=== PATIENT | female | born 1960 | race Caucasian/White ===

== ENCOUNTER 2021-06-28 08:47 | Inpatient (IN) | payer OTHER ==
[~2021-06-28] VITALS: Ht 160 cm; Wt 77.1 kg
[~2021-06-28 08:47] MED LIST: NORCO 5-325 TA1 EACH PO; ZOFRAN ODT4 MG PO
[2021-06-28 09:43] VITALS: BP 139/76
[2021-06-28 10:37] LABS: HEMATOCRIT 40.2 % (37.0-47.0); HEMOGLOBIN 13.5 gm/dL (12.0-15.0); MCH 27.6 pg (26.0-34.0); MCHC 33.5 g/dL (28.0-37.0); MCV 82.5 fL (80.0-100.0); MPV 8.4 fl. (7.2-11.1); NUCLEATED RBCS 0 /100WBC; PLATELET COUNT* 296 thou/uL (150-400); RBC 4.87 mil/uL (4.20-5.00); RDW-CV 13.5 % (10.5-14.5); WBC 16.3 thou/uL (4.0-11.0)
[2021-06-28 10:43] LABS: CALCIUM 8.5 mg/dL (8.5-10.1); CREATININE 0.8 mg/dL (0.6-1.3)
[2021-06-28 10:47] LABS: POTASSIUM 2.6 mmol/L (3.5-5.1)
[2021-06-28 10:48] LABS: ALBUMIN 2.2 g/dL (3.4-5.0); TOTAL BILIRUBIN 0.8 mg/dL (<0.1-1.0); TOTAL PROTEIN 7.3 g/dL (6.4-8.2)
[2021-06-28 11:05] LABS: INFLUENZA A ANTIGEN Negative (Negative); INFLUENZA B ANTIGEN Negative (Negative)
[2021-06-28 12:15] LABS: ABSOLUTE LYMPHOCYTES 1.6 thou/uL (0.8-5.3); ABSOLUTE MONOCYTES 0.8 thou/uL (0.0-1.2); ABSOLUTE NEUTROPHILS 13.9 thou/uL (1.6-8.1)
[2021-06-28 12:16] LABS: PLATELET ESTIMATE ADEQUATE
[2021-06-28 12:50] LABS: CALCIUM 7.8 mg/dL (8.5-10.1); CREATININE 0.8 mg/dL (0.6-1.3)
[2021-06-28 12:54] LABS: MAGNESIUM 2.3 mg/dL (1.8-2.4); PHOSPHORUS* 3.2 mg/dL (2.5-4.9)
[2021-06-28 15:02] VITALS: BP 130/70
[2021-06-28 19:12] VITALS: BP 138/70
[2021-06-28 19:40] VITALS: BP 123/70
[2021-06-29 02:08] VITALS: BP 98/63
[2021-06-29 04:49] LABS: ABSOLUTE BASOPHILS 0.1 thou/uL (0.0-0.2); ABSOLUTE MONOCYTES 0.7 thou/uL (0.0-1.2); ABSOLUTE NEUTROPHILS 12.8 thou/uL (1.6-8.1); BASOPHILS 0.5 %; HEMATOCRIT 37.1 % (37.0-47.0); HEMOGLOBIN 12.5 gm/dL (12.0-15.0); LYMPHOCYTES 6.9 %; MCH 27.8 pg (26.0-34.0); MCHC 33.7 g/dL (28.0-37.0); MCV 82.5 fL (80.0-100.0); MPV 8.4 fl. (7.2-11.1); NUCLEATED RBCS 0 /100WBC; PLATELET COUNT* 276 thou/uL (150-400); POLYS 87.6 %; RBC 4.49 mil/uL (4.20-5.00); WBC 14.6 thou/uL (4.0-11.0)
[2021-06-29 04:55] LABS: CALCIUM 8.2 mg/dL (8.5-10.1); CREATININE 0.6 mg/dL (0.6-1.3)
--- NOTE | 2021-06-29 05:08 | NUR ---
PT ARRIVED TO THE UNIT AT ABOUT 193. O2 SAT 80'S WITH 7L NC. ON 15L HF WITH BUBBLER NOW. LUNGS WHEEZY WITH CONGESTED COUGH. MEDS GIVEN ORDERED. NO C/O PAIN. UP TO BSC INDEPENDENTLY. HAD LOOSE BM. CALL LIGHT WITHIN REACH. WILL CONTINUE TO MONITOR.
[2021-06-29 06:18] VITALS: BP 113/70
[2021-06-29 08:00] VITALS: BP 115/68
[2021-06-29 12:07] VITALS: BP 118/74
--- NOTE | 2021-06-29 12:25 | EKG ---
[place] [address] ELECTROCARDIOGRAM REPORT Name: CORINNA RESTREPO Room: [address] ADM IN .R.#: [id number] Admission: 06/28/21 Attend Phys: Jordan Glasgow, Discharge: Date of : 60 Date of Service: 06/28/21 0943 Report #: [id number] THIS REPORT FOR: //name// [facility] ED Test Date: 2021-06-28 Test Time: 09:43:19 Pat Name: CORINNA RESTREPO Department: Room: [facility] Gender: F Gill Tender: : 1960 Requested By: Cecil Talavera Order Number: [id number] MD: Alonso Mckinnon Measurements Intervals [place] Rate: 118 P: 85 MT: 161 QRS: 59 QRSD: 97 T: 47 QT: 304 QTc: 427 Interpretive Statements Sinus tachycardia Minor nonspecific ST-T alterations No previous ECG available for comparison Electronically Signed On 06-29-2021 12:25:54 ROLL UP OPERATOR by Alonso Mckinnon [email or web address] <ELECTRONICALLY SIGNED> By: Alonso Mckinnon MD, [facility] 06/29/21 1225 0943 0943 Alonso Mckinnon MD, [facility] /EPI
--- NOTE | 2021-06-29 14:57 | NUR ---
CM ASSESSMENT ASSESSMENT COMPLETED VIA PHONE WITH PT (SAM RESTREPO - [phone]). PT RESIDES WITH IN HOME WITH RAMP ACCESS. PT AND FAMILY PLAN TO RETURN HOME UPON MED CLEARANCE. PT HAS NO HX OF DME USE. PT INDEPENDENT WITH ADLS. PT HAS NO HX OF SKILLED, REHAB, OR HH SERVICES. CM TO FOLLOW FOR DC NEEDS.
[2021-06-29 16:34] VITALS: BP 123/78
--- NOTE | 2021-06-29 16:44 | NUR ---
RN AT BEDSIDE PLACING PIC LINE. PATIENT HAS VERY POOR VEIN ACCESS.
[2021-06-29 19:45] VITALS: BP 126/72
--- NOTE | 2021-06-29 20:10 | NUR ---
PATIENT ADMITTED YESTERDAY EVENING WITH COMPLAINT SOA. PATIENTS COVID WAS NEG. WAITING FOR PCR. PCR WAS POSITIVE THIS AFTERNOON. PATIENT HAS VERY POOR IV ACCESS. ORDER FOR PIC LINE. PLACED THIS EVENING. PATIENT GETTING ANTIBIOTIC THERAPY AND REMDESEVIR ORDERED. RIGHT UPPER ARM PIC. PATIENT HAS COARSE EXPIRATORY WHEEZES BILATERALLY UPPER LUNGS. PATIENT REMAINS ON 15 LITERS HIGH FLOW CANNULA. PATIENT RESTED TODAY, BUT DOES GET UP TO COMMODE AT BEDSIDE.
[2021-06-30 02:32] VITALS: BP 108/81
--- NOTE | 2021-06-30 04:07 | NUR ---
PT A&O X 4. ON 15L HF. UP INDEPENDENTLY TO BSC. HAD 2 BM, LOOSE STOOL. PT SLEPT MOST OF THE NIGHT. CALL LIGHT WITHIN REACH. WILL CONTINUE TO MONITOR.
[2021-06-30 06:35] VITALS: BP 124/77
[2021-06-30 11:30] LABS: ABSOLUTE BASOPHILS 0.1 thou/uL (0.0-0.2); ABSOLUTE LYMPHOCYTES 0.7 thou/uL (0.8-5.3); ABSOLUTE MONOCYTES 0.5 thou/uL (0.0-1.2); ABSOLUTE NEUTROPHILS 9.6 thou/uL (1.6-8.1); BASOPHILS 0.5 %; HEMATOCRIT 34.9 % (37.0-47.0); HEMOGLOBIN 11.5 gm/dL (12.0-15.0); LYMPHOCYTES 6.3 %; MCH 27.9 pg (26.0-34.0); MCHC 33.1 g/dL (28.0-37.0); MCV 84.4 fL (80.0-100.0); MONOCYTES 4.8 %; MPV 8.6 fl. (7.2-11.1); NUCLEATED RBCS 0 /100WBC; PLATELET COUNT* 304 thou/uL (150-400); POLYS 88.4 %; RBC 4.13 mil/uL (4.20-5.00); WBC 10.8 thou/uL (4.0-11.0)
[2021-06-30 11:42] VITALS: BP 116/63
[2021-06-30 11:46] LABS: ALBUMIN 1.5 g/dL (3.4-5.0); CALCIUM 7.7 mg/dL (8.5-10.1); CREATININE 0.9 mg/dL (0.6-1.3); POTASSIUM 3.5 mmol/L (3.5-5.1); TOTAL BILIRUBIN 0.2 mg/dL (<0.1-1.0)
--- NOTE | 2021-06-30 13:29 | NUR ---
CM FOLLOWUP PT NOT MED CLEAR YET. PT O2 LEVEL HOLDING AT 15L FOR THE LAST 24 HOURS. CM TO CONTINUE TO FOLLOW FOR FUTURE DC NEEDS.
[2021-06-30 15:31] LABS: CALCIUM 8.2 mg/dL (8.5-10.1); CREATININE 0.7 mg/dL (0.6-1.3); POTASSIUM 3.8 mmol/L (3.5-5.1)
[2021-06-30 16:00] VITALS: BP 124/64
--- NOTE | 2021-06-30 16:17 | 2DMMODE ---
[place] [address] 2 D/M-MODE ECHOCARDIOGRAM Name: CORINNA RESTREPO Room: [address] IN .R.#: [id number] Admission: 06/28/21 Attend Phys: Jordan Glasgow, Discharge: Date of : 60 Date of Service: 06/30/21 1616 Report #: [id number] THIS REPORT FOR: cc: Jordon Nevarez,Jordon Osuna,Alonso Araiza MD [facility] ~ APPROVED REPORT Study performed: 06/30/2021 15:43:10 EXAM: Comprehensive 2D, Doppler, and color-flow Echocardiogram Patient Location: In-Patient Room #: 117 Status: routine BSA: 1.80 HR: 101 bpm BP: 116/63 mmHg Rhythm: Atrial Fibrillation Other Information Study Quality: Good Indications Atrial Fibrillation Dyspnea 2D Dimensions IVSd: 10.06 (7-11mm) LVOT Diam: 20.24 (18-24mm) LVDd: 43.54 mm PWd: 9.52 (7-11mm) Ascending Ao: 31.56 (22-36mm) LVDs: 26.88 (25-40mm) Volumes Left Atrial Volume (Systole) LA ESV Index: 27.50 mL/m2 Aortic Valve AoV Peak Alex.: 1.36 m/s AO Peak Gr.: 7.43 mmHg LVOT Max P.84 mmHg AO Mean Gr.: 3.90 mmHg LVOT Mean P.21 mmHg LVOT Max V: 1.10 m/s AO V2 VTI: 23.88 cm LVOT Mean V: 0.68 m/s GREGORY (VTI): 2.63 cm2 LVOT V1 VTI: 19.52 [place] [address] 2 D/M-MODE ECHOCARDIOGRAM Name: CORINNA RESTREPO Room: [address] IN .R.#: [id number] Admission: 06/28/21 Attend Phys: Jordan Glasgow, Discharge: Date of : 60 Date of Service: 06/30/21 1616 Report #: [id number] TDI Medial E' Alex.: 0.15 m/s Pulmonary Valve PV Peak Alex.: 1.08 m/s PV Peak Gr.: 4.68 mmHg Tricuspid Valve RAP Estimate: 5.00 mmHg TR Peak Gr.: 15.84 mmHg RVSP: 20.00 mmHg PA Pressure: 20.00 mmHg Left Ventricle The left ventricle is normal size. There is normal LV segmental wall motion. There is normal left ventricular wall thickness. Left ventricular systolic function is normal. The left ventricular ejection fraction is within the normal range. LVEF is 60%. This study is not technically sufficient to allow evaluation of the LV diastolic function due to atrial fibrillation. Right Ventricle The right ventricle is normal size. The right ventricular systolic function is normal. Atria The left atrium size is normal. The right atrium size is normal. Aortic Valve Mild aortic valve sclerosis. Trace aortic regurgitation. There is no aortic valvular stenosis. Mitral Valve The mitral valve is normal in structure. Trace mitral regurgitation. No evidence of mitral valve stenosis. Tricuspid Valve The tricuspid valve is normal in structure. Mild tricuspid regurgitation. No pulmonary hypertension. Pulmonic Valve The pulmonary valve is normal in structure. There is no pulmonic valvular regurgitation. Great Vessels The aortic root is normal in size. IVC is normal in size and collapses >50% [place] [address] 2 D/M-MODE ECHOCARDIOGRAM Name: CORINNA RESTREPO Room: [address] IN .R.#: [id number] Admission: 06/28/21 Attend Phys: Jordan Glasgow, Discharge: Date of : 60 Date of Service: 06/30/21 1616 Report #: [id number] Pericardium There is no pericardial effusion. <Conclusion> The left ventricle is normal size. There is normal left ventricular wall thickness. Left ventricular systolic function is normal. The left ventricular ejection fraction is within the normal range. LVEF is 60%. This study is not technically sufficient to allow evaluation of the LV diastolic function due to atrial fibrillation. The right ventricle is normal size. Mild aortic valve sclerosis. Trace aortic regurgitation. There is no aortic valvular stenosis. The mitral valve is normal in structure. Trace mitral regurgitation. The tricuspid valve is normal in structure. Mild tricuspid regurgitation. No pulmonary hypertension. IVC is normal in size and collapses >50% with inspiration. There is no pericardial effusion. There is normal LV segmental wall motion. <ELECTRONICALLY SIGNED> By: Alonso Mckinnon MD, FACC 06/30/211615 15 15 Alonso Mckinnon MD, FACC /INF
--- NOTE | 2021-06-30 17:30 | NUR ---
PT HAD CARDIOLOGY AND PULMONARY CONSULT TODAY. STARTED ON GLUCOSE CHECKS AND SSI. WILL CONTINUE TO ASSESS.
[2021-06-30 20:00] VITALS: BP 120/73
[2021-06-30 23:56] VITALS: BP 115/52
[2021-07-01 03:51] VITALS: BP 100/61
[2021-07-01 05:18] LABS: ABSOLUTE BASOPHILS 0.1 thou/uL (0.0-0.2); ABSOLUTE LYMPHOCYTES 0.8 thou/uL (0.8-5.3); ABSOLUTE MONOCYTES 0.5 thou/uL (0.0-1.2); ABSOLUTE NEUTROPHILS 9.4 thou/uL (1.6-8.1); BASOPHILS 0.7 %; HEMATOCRIT 33.4 % (37.0-47.0); HEMOGLOBIN 11.3 gm/dL (12.0-15.0); LYMPHOCYTES 7.7 %; MCH 28.2 pg (26.0-34.0); MONOCYTES 4.7 %; MPV 8.7 fl. (7.2-11.1); NUCLEATED RBCS 0 /100WBC; PLATELET COUNT* 303 thou/uL (150-400); POLYS 86.9 %; RBC 4.02 mil/uL (4.20-5.00); RDW-CV 13.9 % (10.5-14.5); WBC 10.8 thou/uL (4.0-11.0)
[2021-07-01 05:38] LABS: ALBUMIN 2.2 g/dL (3.4-5.0); CALCIUM 8.2 mg/dL (8.5-10.1); CREATININE 0.6 mg/dL (0.6-1.3); MAGNESIUM 2.1 mg/dL (1.8-2.4); POTASSIUM 3.7 mmol/L (3.5-5.1); TOTAL BILIRUBIN 0.5 mg/dL (<0.1-1.0); TOTAL PROTEIN 6.1 g/dL (6.4-8.2)
--- NOTE | 2021-07-01 06:00 | NUR ---
ASSUMED PT CARE AT APPROX 1930. PT IS AWAKE AND ORIENTED X4. PT IS TRACING SR ON THE BAG WASHER. PT IS ON THE HIGH FLOW NASAL CANNULA AT 15L spO2 IS BETWEEN 92-95%, PT IS SHORT OF AIR WITH ACTIVITY. NO ACUTE CHANGES THROUGHOUT THIS SHIFT. CALL LIGHT WITHIN REACH, HOURLY ROUNDING DONE FOR PT SAFETY. FALL PRECAUTIONS IN PLACE.
--- NOTE | 2021-07-01 11:01 | EKG ---
[place] [address] ELECTROCARDIOGRAM REPORT Name: CORINNA RESTREPO Room: [address] ADM IN .R.#: [id number] Admission: 06/28/21 Attend Phys: Jordan Glasgow, Discharge: Date of : 60 Date of Service: 07/01/21 1053 Report #: [id number] THIS REPORT FOR: //name// [facility] Test Date: 2021-07-01 Test Time: 10:53:05 Pat Name: CORINNA RESTREPO Department: Room: [address] Gender: F Volunteer Services Director: HENRRY : 1960 Requested By: Khadra Whittington Order Number: [id number] Gloria MD: Alonso Mckinnon Measurements Intervals [place] Rate: 77 P: 69 FL: 185 QRS: 58 QRSD: 83 T: 45 QT: 397 QTc: 450 Interpretive Statements Sinus rhythm Compared to ECG 06/28/2021 09:43:19 Sinus tachycardia no longer present Electronically Signed On 07-01-2021 11:00:56 WATER/WASTEWATER PROJECT ENGINEER by Alonso Mckinnon [email or web address] <ELECTRONICALLY SIGNED> By: Alonso Mckinnon MD, FACC 07/01/21 1100 1053 1053 Alonso Mckinnon MD, FAC /EPI
[2021-07-01 13:03] VITALS: BP 139/69
--- NOTE | 2021-07-01 13:30 | CON ---
[address] [address] CONSULTATION Name: CORINNA RESTREPO Room: [address] IN M.R.#: [id number] Admission: 06/28/21 Attend Phys: Jordan Glasgow MD Discharge: Date of : 60 Report #: [id number] THIS REPORT FOR: cc: Jordon Nevarez David DO Pervez, Adeel MD ~ DATE OF CONSULTATION: 06/30/2021 REQUESTING PHYSICIAN: Jordan Glasgow MD INDICATION FOR CONSULTATION: Acute hypoxemic respiratory failure secondary to COVID-19. HISTORY OF PRESENT ILLNESS: A 60-year-old female with extensive history of smoking, still smokes, not previously diagnosed with COPD, now admitted with COVID-19, is unvaccinated, is short of breath. She is coughing, not much sputum. No chest pain. Has mild swelling of lower extremities. No calf pain. Currently, she is requiring 15 liters of oxygen to maintain O2 saturation in the low 90s, oxygen needs appeared to be increasing. Her albumin is 1.5. The patient also is in a rate controlled atrial fibrillation. She previously is not known to be in atrial fibrillation. REVIEW OF SYSTEMS: For 12 points is negative except as mentioned above. PAST MEDICAL HISTORY: , muscular dystrophy, corrective surgery on bilateral leg and feet, obesity, body mass index 30. SOCIAL HISTORY: Extensive history of smoking, still smokes. As I mentioned of alcohol use in the records; however, no known history of excessive alcohol use. No known history of illegal drug use. ALLERGIES: No known drug allergies. CURRENT MEDICATIONS: List in [facility] reviewed. HOME MEDICATIONS: List in [facility] reviewed. FAMILY HISTORY: No pertinent family history. PHYSICAL EXAMINATION: GENERAL: Alert, awake and oriented. VITAL SIGNS: In the records, reviewed. Note that there is a progressive increase in her oxygen needs from 4 liters. She has now gone up to 15 liters. HEENT: Head is normocephalic and atraumatic. NECK: Does not show raised [place] [address] CONSULTATION Name: CORINNA RESTREPO Room: [address] IN [facility]#: [id number] Admission: 06/28/21 Attend Phys: Jordan Glasgow MD Discharge: Date of : 60 Report #: [id number] CHEST: Breath sounds are bilaterally equal. No added sounds. HEART: Irregular. No murmur. ABDOMEN: Soft and nontender. LOWER EXTREMITIES: 1+ edema. No calf tenderness. LABORATORY DATA: The patient's lab work and chest x-ray in [facility] reviewed. ASSESSMENT AND PLAN: 1. Acute hypoxemic respiratory failure secondary to COVID-19. Would recommend avoiding supine sleep, prefers prone if possible. Ambulate as tolerated. 2. COVID-19. Continue dexamethasone. We will watch closely and adjust dose as indicated. She is also on remdesivir, which I agree with. Follow LFTs. I recommend also giving her Actemra. I understand that Actemra is in a short supply. 3. Pulmonary infiltrates. Agree with ceftriaxone and doxycycline. We will continue doxycycline and switch to p.o. Recommend checking nasal swab for methicillin-resistant Staphylococcus aureus as well as a sputum culture. 4. Fluid overload with hypoalbuminemia. We will go ahead and give her a dose of albumin. We will give her Lasix and Aldactone with it. We will also give potassium to avoid a drop in potassium level. 5. Atrial fibrillation, noted to have been started on diltiazem as well as flecainide by the Cardiology Service. 6. History of smoking/suspected chronic obstructive pulmonary disease. She is on dexamethasone as above. Currently, also on albuterol via an inhaler. The patient currently is not in a negative pressure room. Therefore, I did not order nebulized bronchodilators, but I understand the whole unit is now negative pressure and therefore, we will consider in case she fails to improve or declines. 7. Evaluation for thromboembolic phenomena/deep venous thrombosis prophylaxis. She is already started on Xarelto by the Cardiology Service. We will still like to do venous Dopplers. As in case positive, she will need a higher dose of Xarelto. Right heart pressures are not elevated on echocardiogram with a normal left ventricular ejection fraction. 8. Clostridium difficile prophylaxis. We will start Lactinex. 9. Gastrointestinal prophylaxis, Protonix. 10. Hypernatremia. I will also give her a liter of D5W at 50 an hour to avoid a rise in sodium level with diuresis. I also ordered a low dose insulin sliding scale, likely the patient will need more insulin than ordered currently, that I am initiating initially, will likely need to increase later. [address] [address] CONSULTATION Name: CORINNA RESTREPO Room: [address] IN M.R.#: [id number] Admission: 06/28/21 Attend Phys: Jordan Glasgow MD Discharge: Date of : 60 Report #: [id number] Thanks for this consultation. <ELECTRONICALLY SIGNED> By: Gerardo Moise MD 07/01/21 1330 1628 1949Aricardo Moise MD /nt
--- NOTE | 2021-07-01 15:49 | NUR ---
CM FOLLOWUP PT NOT MED CLEAR AND ON 15L O2. CM TO FOLLOW FOR FUTURE DC PLANNING NEEDS. CURRENT PLAN TO DC HOME WITH [facility] WHEN MED CLEAR.
[2021-07-01 16:00] VITALS: BP 119/63
[2021-07-01 21:00] VITALS: BP 122/62
[2021-07-02 00:10] VITALS: BP 135/76
[2021-07-02 04:04] VITALS: BP 114/75
--- NOTE | 2021-07-02 04:53 | NUR ---
PT A&O X 4. ON 15L HF. MEDS GIVEN ORDERED. SR ON THE HEART MONITOR. USES BSC INDEPENDENTLY. CALL LIGHT WITHIN REACH. WILL CONTINUE TO MONITOR.
[2021-07-02 05:51] LABS: ABSOLUTE LYMPHOCYTES 0.8 thou/uL (0.8-5.3); ABSOLUTE MONOCYTES 0.6 thou/uL (0.0-1.2); BASOPHILS 0.2 %; HEMATOCRIT 34.9 % (37.0-47.0); HEMOGLOBIN 11.6 gm/dL (12.0-15.0); LYMPHOCYTES 7.4 %; MCH 28.4 pg (26.0-34.0); MCHC 33.2 g/dL (28.0-37.0); MCV 85.5 fL (80.0-100.0); MONOCYTES 5.6 %; MPV 8.7 fl. (7.2-11.1); NUCLEATED RBCS 0 /100WBC; PLATELET COUNT* 297 thou/uL (150-400); POLYS 86.8 %; RBC 4.08 mil/uL (4.20-5.00); WBC 10.4 thou/uL (4.0-11.0)
[2021-07-02 06:08] LABS: ALBUMIN 2.1 g/dL (3.4-5.0); CALCIUM 8.2 mg/dL (8.5-10.1); CREATININE 0.6 mg/dL (0.6-1.3); POTASSIUM 4.3 mmol/L (3.5-5.1); TOTAL BILIRUBIN 0.4 mg/dL (<0.1-1.0)
[2021-07-02 09:00] VITALS: BP 136/81
[2021-07-02 12:00] VITALS: BP 122/71
--- NOTE | 2021-07-02 14:56 | NUR ---
CM FOLLOWUP PT NOT MED CLEAR. PT ON AND MAY SOON REQUIRE HEATED HIFLOW. CM TO FOLLOW FOR FUTURE DC PLANNING NEEDS.
[2021-07-02 16:00] VITALS: BP 135/73
[2021-07-02 20:30] VITALS: BP 110/60
[2021-07-03] VITALS: BP 146/74
[2021-07-03 04:00] VITALS: BP 121/70
[2021-07-03 07:22] LABS: HEMATOCRIT 38.3 % (37.0-47.0); HEMOGLOBIN 12.4 gm/dL (12.0-15.0); MCH 27.3 pg (26.0-34.0); MCHC 32.3 g/dL (28.0-37.0); MCV 84.4 fL (80.0-100.0); MPV 8.8 fl. (7.2-11.1); NUCLEATED RBCS 0 /100WBC; PLATELET COUNT* 329 thou/uL (150-400); RBC 4.53 mil/uL (4.20-5.00); RDW-CV 13.7 % (10.5-14.5); WBC 13.1 thou/uL (4.0-11.0)
[2021-07-03 07:33] LABS: ALBUMIN 2.2 g/dL (3.4-5.0); CALCIUM 8.1 mg/dL (8.5-10.1); CREATININE 0.6 mg/dL (0.6-1.3); MAGNESIUM 2.2 mg/dL (1.8-2.4); PHOSPHORUS* 3.9 mg/dL (2.5-4.9); TOTAL BILIRUBIN 0.5 mg/dL (<0.1-1.0); TOTAL PROTEIN 6.1 g/dL (6.4-8.2)
[2021-07-03 08:00] VITALS: BP 123/59
[2021-07-03 08:16] LABS: ABSOLUTE LYMPHOCYTES 1.8 thou/uL (0.8-5.3); ABSOLUTE MONOCYTES 0.3 thou/uL (0.0-1.2); HYPOCHROMASIA 1+; PLATELET ESTIMATE ADEQUATE
[2021-07-03 12:00] VITALS: BP 129/66
[2021-07-03 16:00] VITALS: BP 125/65
[2021-07-03 22:45] VITALS: BP 133/60
[2021-07-04] VITALS: BP 124/56
[2021-07-04 04:00] VITALS: BP 127/79
[2021-07-04 08:00] VITALS: BP 114/65
[2021-07-04 11:30] VITALS: BP 108/70
[2021-07-04 11:42] LABS: ABSOLUTE LYMPHOCYTES 1.1 thou/uL (0.8-5.3); ABSOLUTE MONOCYTES 0.6 thou/uL (0.0-1.2); ABSOLUTE NEUTROPHILS 12.5 thou/uL (1.6-8.1); BASOPHILS 0.3 %; HEMATOCRIT 41.7 % (37.0-47.0); HEMOGLOBIN 13.3 gm/dL (12.0-15.0); LYMPHOCYTES 7.7 %; MCH 27.5 pg (26.0-34.0); MONOCYTES 4.4 %; MPV 8.8 fl. (7.2-11.1); NUCLEATED RBCS 0 /100WBC; PLATELET COUNT* 384 thou/uL (150-400); POLYS 87.6 %; RBC 4.85 mil/uL (4.20-5.00); WBC 14.2 thou/uL (4.0-11.0)
[2021-07-04 12:02] LABS: ALBUMIN 2.4 g/dL (3.4-5.0); CALCIUM 8.2 mg/dL (8.5-10.1); CREATININE 0.8 mg/dL (0.6-1.3); POTASSIUM 4.1 mmol/L (3.5-5.1); TOTAL BILIRUBIN 0.6 mg/dL (<0.1-1.0); TOTAL PROTEIN 6.2 g/dL (6.4-8.2)
[2021-07-04 18:57] VITALS: BP 114/60
[2021-07-04 20:00] VITALS: BP 119/59
[2021-07-05 00:22] VITALS: BP 116/72
[2021-07-05 04:36] VITALS: BP 107/67
[2021-07-05 08:00] VITALS: BP 113/66
[2021-07-05 12:59] LABS: ABSOLUTE LYMPHOCYTES 0.8 thou/uL (0.8-5.3); ABSOLUTE MONOCYTES 1.1 thou/uL (0.0-1.2); ABSOLUTE NEUTROPHILS 13.6 thou/uL (1.6-8.1); BASOPHILS 0.3 %; HEMATOCRIT 40.8 % (37.0-47.0); HEMOGLOBIN 13.3 gm/dL (12.0-15.0); LYMPHOCYTES 5.4 %; MCH 27.6 pg (26.0-34.0); MCHC 32.5 g/dL (28.0-37.0); MCV 84.8 fL (80.0-100.0); MONOCYTES 6.8 %; MPV 8.4 fl. (7.2-11.1); NUCLEATED RBCS 0 /100WBC; PLATELET COUNT* 367 thou/uL (150-400); POLYS 87.5 %; RBC 4.81 mil/uL (4.20-5.00); WBC 15.6 thou/uL (4.0-11.0)
[2021-07-05 13:13] LABS: ALBUMIN 2.3 g/dL (3.4-5.0); CALCIUM 8.1 mg/dL (8.5-10.1); CREATININE 0.8 mg/dL (0.6-1.3); POTASSIUM 4.7 mmol/L (3.5-5.1); TOTAL BILIRUBIN 0.3 mg/dL (<0.1-1.0)
[2021-07-05 13:24] VITALS: BP 107/55
[2021-07-05 16:35] VITALS: BP 92/56
--- NOTE | 2021-07-05 18:32 | NUR ---
PATIENT A&OX4 AND ON 10LC HFNC. PATIENT DENIES PAIN OR SOA. VSS. PATIENT RESTING COMFORTABLY WITH CALL LIGHT IN REACH.
[2021-07-05 21:50] VITALS: BP 101/50
[2021-07-06] VITALS: BP 93/53
[2021-07-06 04:00] VITALS: BP 105/54
[2021-07-06 06:14] LABS: ABSOLUTE LYMPHOCYTES 0.9 thou/uL (0.8-5.3); ABSOLUTE MONOCYTES 0.7 thou/uL (0.0-1.2); ABSOLUTE NEUTROPHILS 12.6 thou/uL (1.6-8.1); BASOPHILS 0.3 %; EOSINOPHILS 0.1 %; HEMATOCRIT 41.3 % (37.0-47.0); HEMOGLOBIN 13.4 gm/dL (12.0-15.0); LYMPHOCYTES 6.1 %; MCH 27.5 pg (26.0-34.0); MCHC 32.4 g/dL (28.0-37.0); MONOCYTES 4.8 %; MPV 8.8 fl. (7.2-11.1); NUCLEATED RBCS 0 /100WBC; PLATELET COUNT* 337 thou/uL (150-400); POLYS 88.7 %; RBC 4.86 mil/uL (4.20-5.00); RDW-CV 13.9 % (10.5-14.5); WBC 14.2 thou/uL (4.0-11.0)
[2021-07-06 06:45] LABS: ALBUMIN 2.4 g/dL (3.4-5.0); CREATININE 0.9 mg/dL (0.6-1.3); MAGNESIUM 2.6 mg/dL (1.8-2.4); POTASSIUM 4.8 mmol/L (3.5-5.1); TOTAL BILIRUBIN 0.4 mg/dL (<0.1-1.0); TOTAL PROTEIN 5.9 g/dL (6.4-8.2)
--- NOTE | 2021-07-06 07:53 | NUR ---
PATIENT HAS SLEPT WELL THROUGHOUT MOST OF THE NIGHT. VSS ON 10L HIGH FLOW NASAL CANNULA. PATIENTS OXYGEN SATURATION DOES GET LOW UPON ANY EXERTION AND TAKES A BIT TO RECOVER AND THEN OXYGEN SATURATION COMES BACK UP TO NORMAL. PICC TO UPPER RIGHT ARM-SL. PATIENT INSTRUCTED TO USE CALL LIGHT WHEN NEEDING ASSISTANCE. HOURLY ROUNDS MADE. WILL CONTINUE WITH PLAN OF CARE AND NURSING TO MONITOR.
[2021-07-06 08:45] VITALS: BP 138/95
[2021-07-06 13:37] VITALS: BP 101/54
[2021-07-06 16:16] VITALS: BP 118/63
--- NOTE | 2021-07-06 18:39 | NUR ---
CM FOLLOWUP PT NOT MED CLEAR AND ON 10L O2. CM TO FOLLOW FOR DC PLANNING.
[2021-07-06 21:56] VITALS: BP 112/64
[2021-07-07] VITALS (7 sets, daily range): BP systolic 100–110; BP diastolic 57–72
[2021-07-07 06:52] LABS: HEMATOCRIT 41.8 % (37.0-47.0); HEMOGLOBIN 13.2 gm/dL (12.0-15.0); MCH 27.3 pg (26.0-34.0); MCHC 31.5 g/dL (28.0-37.0); MCV 86.8 fL (80.0-100.0); MPV 8.8 fl. (7.2-11.1); NUCLEATED RBCS 0 /100WBC; PLATELET COUNT* 319 thou/uL (150-400); RBC 4.82 mil/uL (4.20-5.00); RDW-CV 13.8 % (10.5-14.5); WBC 13.7 thou/uL (4.0-11.0)
[2021-07-07 07:12] LABS: ALBUMIN 2.4 g/dL (3.4-5.0); CALCIUM 8.3 mg/dL (8.5-10.1); CREATININE 0.8 mg/dL (0.6-1.3); MAGNESIUM 2.5 mg/dL (1.8-2.4); POTASSIUM 4.7 mmol/L (3.5-5.1); TOTAL BILIRUBIN 0.4 mg/dL (<0.1-1.0); TOTAL PROTEIN 5.8 g/dL (6.4-8.2)
[2021-07-07 08:24] LABS: ABSOLUTE MONOCYTES 0.3 thou/uL (0.0-1.2); ABSOLUTE NEUTROPHILS 12.5 thou/uL (1.6-8.1); MYELOCYTES 1 %
[2021-07-07 08:25] LABS: PLATELET ESTIMATE ADEQUATE
--- NOTE | 2021-07-07 14:19 | NUR ---
Nutrition: Pt admitted to COVID unit. Assessed for LOS. Physician indicated mild PCM - defer. Labs: alb 2.4, prealb 40.5, [id number]. Meds: l. acidophilus, insulin, albuterol. PMHx: afib, OBE. Wt: 169#. BMI: 30.1. No meal intake % recorded in chart. GOALS: >75% of meals consumed, tight BG control. Consider mild nutrition risk at this time.
--- NOTE | 2021-07-07 16:22 | NUR ---
CM FOLLOWUP PT NOT MED CLEAR FOR DC. PT MAY NEED AND UPON DC. PT ACCEPTED BY [facility] ([phone]). CM TO FOLLOW.
[2021-07-08] VITALS (7 sets, daily range): BP systolic 104–114; BP diastolic 58–71
[2021-07-08 04:58] LABS: ABSOLUTE LYMPHOCYTES 0.9 thou/uL (0.8-5.3); ABSOLUTE MONOCYTES 0.8 thou/uL (0.0-1.2); ABSOLUTE NEUTROPHILS 12.8 thou/uL (1.6-8.1); BASOPHILS 0.2 %; HEMATOCRIT 41.5 % (37.0-47.0); HEMOGLOBIN 13.4 gm/dL (12.0-15.0); LYMPHOCYTES 6.3 %; MCH 27.8 pg (26.0-34.0); MCHC 32.4 g/dL (28.0-37.0); MCV 85.9 fL (80.0-100.0); MONOCYTES 5.2 %; MPV 8.7 fl. (7.2-11.1); NUCLEATED RBCS 0 /100WBC; PLATELET COUNT* 312 thou/uL (150-400); POLYS 88.3 %; RBC 4.84 mil/uL (4.20-5.00); RDW-CV 13.7 % (10.5-14.5); WBC 14.5 thou/uL (4.0-11.0)
[2021-07-08 06:00] LABS: ALBUMIN 3.1 g/dL (3.4-5.0); CALCIUM 8.7 mg/dL (8.5-10.1); CREATININE 0.6 mg/dL (0.6-1.3); POTASSIUM 4.7 mmol/L (3.5-5.1); TOTAL BILIRUBIN 0.6 mg/dL (<0.1-1.0); TOTAL PROTEIN 6.4 g/dL (6.4-8.2)
[2021-07-08 06:01] LABS: PREALBUMIN 46.2 mg/dL (18.0-35.7)
--- NOTE | 2021-07-08 08:19 | NUR ---
PATIENT HAS RESTED WELL THROUGHOUT MOST OF THE NIGHT. VSS ON 10L HIGH FLOW NASAL CANNULA. LUNG SOUNDS ARE DIMINISHED/WHEEZY. PATIENT INSTRUCTED TO USE CALL LIGHT WHEN NEEDING ASSISTANCE. HOURLY ROUNDS MADE. WILL CONTINUE WITH PLAN OF CARE AND NURSING TO MONITOR.
[2021-07-08] MEDS ORDERED: CARDIZEM CD120 MG PO (11:47)
[2021-07-08] MEDS ORDERED: FLECAINIDE ACET50 M1 PO (11:47)
[2021-07-08] MEDS ORDERED: XARELTO20 MG PO (11:47)
[2021-07-08] MEDS ORDERED: PROTONIX40 M4 PO (11:49)
[2021-07-08] MEDS ORDERED: DEXAMETHASONE1 MG PO (11:49)
--- NOTE | 2021-07-08 14:56 | NUR ---
CM FOLLOWUP PT NOT MED CLEAR AND ON 10L 02. CM TO FOLLOW FOR FUTURE DC PLANNING.
[2021-07-09] VITALS (7 sets, daily range): BP systolic 111–129; BP diastolic 64–72
--- NOTE | 2021-07-09 06:12 | NUR ---
PT IS ABLE TO COMMUNICATE HER NEEDS TO STAFF EFFECTIVELY. SHE HAS DENIED THE NEED FOR PAIN MEDICATION UP TO THIS TIME. POSSIBLE DISCHARGE SOON PENDING IMPROVEMENT TO O2 NEEDS DURING REST/EXERCISE RT TEST.
--- NOTE | 2021-07-09 18:01 | NUR ---
CM FOLLOWUP PT MED CLEAR FOR DC AND WILL DC HOME WITH HH VIA [facility] ([phone]) AND O2 VIA [facility] ([phone]).
--- NOTE | 2021-07-09 21:00 | NUR ---
Patient alert and oriented x 4. She stated that she had recieved her discharge paperwork and understood it. PICC line to rt upper arm was discontinued with no complications and pressure dressing was applied. [facility] delivered O2 for home. Staff nurse escorted patient via wheelchair and picked her up at the exit.
== END 2021-07-09 20:08 | disposition home health service (06) | DRG 177 ==
LOC: M.ERS 08:47 → M.TBA-ER 11:02 → M.ORTHSURG 11:02
PROVIDERS: Emergency Medicine Emergency Medical Services; Internal Medicine; Internal Medicine Critical Care Medicine; Registered Nurse; ADMIT Internal Medicine; ATTEND Internal Medicine
DX: U07.1 COVID-19 (principal); J12.82 Pneumonia due to coronavirus disease 2019; J80 Acute respiratory distress syndrome; E87.0 Hyperosmolality and hypernatremia; E44.1 Mild protein-calorie malnutrition; D68.59 Other primary thrombophilia; F17.200 Nicotine dependence, unspecified, uncomplicated; E66.9 Obesity, unspecified; G71.00 Muscular dystrophy, unspecified; I48.0 Paroxysmal atrial fibrillation; E87.6 Hypokalemia; E88.09 Other disorders of plasma-protein metabolism, not elsewhere classified; E87.70 Fluid overload, unspecified; Z98.891 History of uterine scar from previous surgery; Z79.899 Other long term (current) drug therapy; Z68.30 Body mass index [BMI] 30.0-30.9, adult